=== PATIENT | female | born 1970 | race Caucasian/White ===

== ENCOUNTER 2018-09-17 05:45 | Inpatient (IN) | payer BC ==
[2018-09-17] MEDS ORDERED: GELATIN SIZE 100 SPONGE (06:49)
[2018-09-17] MEDS ORDERED: SODIUM CL BACTERIOSTATIC 30 ML INJ (06:49)
[2018-09-17] MEDS ORDERED: MIDAZOLAM 1 MG/ML 2 ML INJ (06:58)
[2018-09-17] MEDS ORDERED: LACTATED RINGER'S 1,000 ML IV* (07:00)
[2018-09-17] MEDS ORDERED: SCOPOLAMINE 1.5 MG PATCH (07:07)
[2018-09-17] MEDS ORDERED: PROVENTIL HFA 6.7GM INHALER (07:07)
[2018-09-17] MEDS ORDERED: LIDOCAINE 1% (MDV) 20 ML INJ (07:12)
[2018-09-17] MEDS ORDERED: SUCCINYLCHOLINE CHLORIDE 100 MG/5 ML SYG IV (07:12)
[2018-09-17] MEDS ORDERED: PROPOFOL 20 ML (07:12)
[2018-09-17] MEDS ORDERED: ROCURONIUM 50 MG INJ (07:12)
[2018-09-17] MEDS: CEFAZOLIN 2 GM/50 ML (PMX) 50 ML IVPB (07:25)
[2018-09-17] MEDS ORDERED: HYDROCODONE/APAP (10/325) TAB PO ×2 (07:30)
[2018-09-17] MEDS ORDERED: DIPHENHYDRAMINE 25 MG CAP PO (07:30)
[2018-09-17] MEDS ORDERED: DIPHENHYDRAMINE 50 MG INJ IV ×2 (07:30→08:30)
[2018-09-17] MEDS ORDERED: NALOXONE (0.4 MG/ML) INJ IV (07:30)
[2018-09-17] MEDS ORDERED: CYCLOBENZAPRINE 10 MG TAB PO (07:30)
[2018-09-17] MEDS ORDERED: HYDROmorphONE 0.5 MG/0.5 ML SYG IV (07:30)
[2018-09-17] MEDS ORDERED: CEPASTAT LOZENGE MT (07:30)
[2018-09-17] MEDS ORDERED: ACETAMINOPHEN 325 MG TAB PO (07:30)
[2018-09-17] MEDS ORDERED: BISACODYL 10 MG SUPP PR (07:30)
[2018-09-17] MEDS ORDERED: ONDANSETRON 4 MG INJ ×2 (07:32→10:14)
[2018-09-17] MEDS ORDERED: FAMOTIDINE 20 MG INJ (07:32)
[2018-09-17] MEDS ORDERED: DEXAMETHASONE 4 MG/ML 5 ML INJ (07:32)
[2018-09-17] MEDS ORDERED: CEFAZOLIN 1 GM INJ (07:33)
[2018-09-17] MEDS ORDERED: DESFLURANE 15 MIN (08:00)
[2018-09-17] MEDS ORDERED: FENTAnyl 50 MCG/ML VIAL (08:04)
[2018-09-17] MEDS ORDERED: HYDROmorphONE 1 MG/5 ML IV SYRINGE IV (08:30)
[2018-09-17] MEDS ORDERED: ALBUTEROL 0.083% (NEB) 2.5 MG/3 ML AMP HHN (08:30)
[2018-09-17] MEDS ORDERED: LORAZEPAM 2 MG INJ IV (08:30)
[2018-09-17] MEDS ORDERED: METOCLOPRAMIDE 10 MG INJ IV (08:30)
[2018-09-17] MEDS ORDERED: FENTAnyl 50 MCG/ML VIAL IV ×2 (08:30)
[2018-09-17] MEDS ORDERED: PROCHLORPERAZINE 10 MG INJ IV (08:30)
[2018-09-17] MEDS ORDERED: ONDANSETRON 4 MG INJ IV (08:30)
[2018-09-17] MEDS: BUPIVACAINE 0.5%/EPI (SDV) 10 ML INJ (08:46)
[2018-09-17] MEDS: POLYMYXIN/BACITRACIN 1L IRRIG (08:47)
[2018-09-17] MEDS: THROMBIN (BOVINE) 5,000 UNIT VIAL TP (08:47)
[2018-09-17] MEDS: SURGIFOAM POWDER 1 GM KIT (08:47)
[2018-09-17] MEDS ORDERED: SUGAMMADEX SODIUM 200 MG/2 ML VIAL IV (10:39)
[2018-09-17] MEDS: HYDROmorphONE 1 MG/5 ML IV SYRINGE IV ×3 (12:33→12:54)
[2018-09-17] MEDS: FENTAnyl 50 MCG/ML VIAL IV ×2 (12:34→12:44)
[2018-09-17] MEDS: MIDAZOLAM 1 MG/ML 2 ML INJ IV (12:35)
[2018-09-17] MEDS: MEPERIDINE 25 MG INJ IV (12:35)
[2018-09-17] MEDS: HYDROmorphONE 0.2 MG/ML PCA IV (12:54)
[2018-09-17] MEDS ORDERED: ALBUTEROL/IPRATROPIUM (NEB) 3 ML AMP HHN (13:00)
[2018-09-17] MEDS: DOCUSATE SODIUM 100 MG CAP PO ×2 (13:11→20:07)
[2018-09-17] MEDS: CEFAZOLIN 1 GM/50 ML (PMX) 50 ML IVPB ×2 (16:15→23:26)
[2018-09-17] MEDS: D5W-0.45 NACL + KCL 20 MEQ 1,000 ML IV ×2 (17:01→17:10)
[2018-09-17] MEDS: PROGESTERONE 100 MG CAP PO (20:08)
[2018-09-17] MEDS: MONTELUKAST 10 MG TAB PO (20:08)
[2018-09-18] MEDS: D5W-0.45 NACL + KCL 20 MEQ 1,000 ML IV ×2 (03:50→12:25)
[2018-09-18 05:11] LABS: ADD MAN DIFF? NO
[2018-09-18 05:23] LABS: WHITE BLOOD COUNT 10.5 10^3/ul (4.8-10.8)
[2018-09-18 05:23] LABS: BASOPHILS % 0.4 % (0.0-2.0); EOSINOPHILS # 0.1 10^3/ul (0.0-0.5); EOSINOPHILS % 0.6 % (0.0-7.0); HEMATOCRIT 35.1 % (37.0-47.0); HEMOGLOBIN 11.8 g/dl (12.0-16.0); LYMPHOCYTES # 1.9 10^3/ul (0.8-2.9); LYMPHOCYTES % 18.5 % (15.0-51.0); MEAN CORPUSCULAR HEMOGLOBIN 31.7 pg (29.0-33.0); MEAN CORPUSCULAR HGB CONC 33.6 g/dl (32.0-37.0); MEAN CORPUSCULAR VOLUME 94.4 fl (82.0-101.0); MEAN PLATELET VOLUME 9.3 fl (7.4-10.4); MONOCYTE # 1.2 10^3/ul (0.3-0.9); MONOCYTES % 11.5 % (0.0-11.0); NEUTROPHIL # 7.2 10^3/ul (1.6-7.5); NEUTROPHILS % 68.8 % (39.0-77.0); PLATELET COUNT 243 10^3/UL (140-415); RED BLOOD COUNT 3.72 10^6/ul (4.20-5.40); RED CELL DISTRIBUTION WIDTH 11.8 % (11.5-14.5)
[2018-09-18] MEDS: PANTOPRAZOLE (EC) 40 MG TAB PO (05:24)
[2018-09-18 05:39] LABS: ANION GAP 5 (5-13); BLOOD UREA NITROGEN 8 mg/dl (7-20); CALCIUM 8.3 mg/dl (8.4-10.2); CARBON DIOXIDE 28 mmol/L (21-31); CHLORIDE 105 mmol/L (97-110); CREATININE 0.52 mg/dl (0.44-1.00); Estimated GFR > 60 mL/min (>60); GLUCOSE 122 mg/dl (70-220); MAGNESIUM 1.9 mg/dl (1.7-2.5); POTASSIUM 3.9 mmol/L (3.5-5.1); SODIUM 138 mmol/L (135-144)
[2018-09-18] MEDS: HYDROmorphONE 0.2 MG/ML PCA IV (05:47)
[2018-09-18] MEDS: CEFAZOLIN 1 GM/50 ML (PMX) 50 ML IVPB (08:11)
[2018-09-18] MEDS: ONDANSETRON 4 MG INJ IV (08:11)
[2018-09-18] MEDS: DOCUSATE SODIUM 100 MG CAP PO (08:11)
[2018-09-18] MEDS: PAROXETINE (CR) 12.5 MG TAB PO (09:00)
[2018-09-18] MEDS: FLUTICASONE/VILANTEROL 100-25 INH (09:58)
[2018-09-18] MEDS: HYDROCODONE/APAP (10/325) TAB PO (09:59)
== END 2018-09-18 13:28 | disposition home or self-care (01) | DRG 473 ==
LOC: REC 05:45 → MS1 16:46
PROC: 0RG20A0 Fusion of 2 or more Cervical Vertebral Joints with Interbody Fusion Device, Anterior Approach, Anterior Column, Open Approach (ICD-10-PCS; principal; 2018-09-17 07:00)
PROC: 0RG20K0 Fusion of 2 or more Cervical Vertebral Joints with Nonautologous Tissue Substitute, Anterior Approach, Anterior Column, Open Approach (ICD-10-PCS; 2018-09-17 07:00)
PROC: 0RT30ZZ Resection of Cervical Vertebral Disc, Open Approach (ICD-10-PCS; 2018-09-17 07:00)
DX: M50.121 Cervical disc disorder at C4-C5 level with radiculopathy (principal)
CPT/HCPCS: 72052; 80048; 83735; 85025; 87086; 88304; 97116; 97161; 97530